=== PATIENT | male | born 1975 | race Caucasian/White ===

== ENCOUNTER 2020-03-31 13:52 | Emergency (ER) | payer MEDICAID ==
[~2020-03-31] VITALS: Ht 165.1 cm; Wt 98.4 kg
[2020-03-31 13:57] VITALS: Ht 165.1 cm; Wt 98.4 kg
[2020-03-31 14:38] LABS: BASOPHIL % 0.8 % (0-2)
[2020-03-31 14:42] LABS: PLATELET COUNT 54 x10^3mcL (130-400); RED CELL DISTRIBUTION WIDTH 15.9 % (11.5-14.5)
[2020-03-31 14:51] LABS: UA SPECIFIC GRAVITY >=1.030 (1.005-1.035); microscopic required? YES; urine erythrocyte 1+ (NEGATIVE)
[2020-03-31 15:45] LABS: CALCIUM 8.8 mg/dL (8.5-10.1); CARBON DIOXIDE 23.9 mmol/L (21-32); CHLORIDE SERUM 101 mmol/L (98-107); GFR1 > 60 mL/min; GLUCOSE SERUM 105 mg/dL (74-106); POTASSIUM SERUM 3.5 mmol/L (3.5-5.1); SODIUM SERUM 142 mmol/L (136-145)
[2020-03-31 15:50] LABS: ALBUMIN 4.1 g/dL (3.4-5.0); ALKALINE PHOSPHATASE 88 U/L (46-116); ALT/SGPT 108 U/L (16-63); AST/SGOT 152 U/L (15-37); BILIRUBIN TOTAL 1.6 mg/dL (0.20-1.00); LIPASE 240 IU/L (73-393); TOTAL PROTEIN, SERUM 8.2 g/dL (6.4-8.2)
[2020-03-31 17:35] VITALS: BP 131/78
== END 2020-03-31 17:35 | disposition home or self-care (01) ==
LOC: ED 13:52
PROVIDERS: Emergency Medicine
DX: N30.90 Cystitis, unspecified without hematuria (principal)
CPT/HCPCS: J7030; Q0092; Q9967

== ENCOUNTER 2020-06-29 17:51 | Inpatient (IN) | payer MEDICAID ==
[~2020-06-29] VITALS: Ht 165.1 cm; Wt 95.3 kg
[2020-06-29 18:48] LABS: PLATELET COUNT 131 x10^3mcL (130-400)
[2020-06-29 18:54] LABS: RED CELL DISTRIBUTION WIDTH 19.7 % (11.5-14.5)
[2020-06-29 19:05] LABS: POTASSIUM SERUM 4.7 mmol/L (3.5-5.1)
[2020-06-29 19:07] LABS: BAND NEUTROPHIL 7 % (0-10); BASOPHIL 0 % (0-2); BILIRUBIN TOTAL 35.6 mg/dL (0.20-1.00); MONOCYTE 2 % (0-7); SEGMENTED NEUTROPHILS 88 % (37-75)
[2020-06-29 19:09] LABS: rbc morphology (normal/abnorm) NORMAL (NORMAL)
[2020-06-29 19:10] LABS: PLATELET MORPHOLOGY PLATELETS NORMAL
[2020-06-29 20:11] LABS: TOTAL PROTEIN, SERUM 5.3 g/dL (6.4-8.2)
[2020-06-29 20:12] LABS: ALBUMIN 1.7 g/dL (3.4-5.0)
[2020-06-29] MEDS ORDERED: OMEPRAZOLE MAGN20 M1 PO (21:19)
[2020-06-29 21:56] LABS: MAGNESIUM 2.7 mg/dL (1.8-2.4)
[2020-06-29 22:06] LABS: FREE T4 0.54 ng/dL (0.76-1.46)
[2020-06-29 22:10] LABS: T4(THYROXINE) 2.6 ug/dL (4.7-13.3)
[2020-06-29 22:14] LABS: T3 TOTAL 0.26 ng/mL
[2020-06-29 23:01] VITALS: BP 109/72
[2020-06-29 23:16] VITALS: Ht 165.1 cm; Wt 95.3 kg
[2020-06-30 00:58] LABS: CHOLESTEROL/HDL RATIO 7.8
[2020-06-30 00:59] LABS: PHOSPHOROUS 16.2 mg/dL (2.5-4.9)
[2020-06-30 04:42] VITALS: BP 111/50
[2020-06-30 07:54] LABS: CARBON DIOXIDE 11.8 mmol/L (21-32); POTASSIUM SERUM 4.8 mmol/L (3.5-5.1)
[2020-06-30 07:59] LABS: CALCIUM 5.6 mg/dL (8.5-10.1); CREATININE SERUM 14.2 mg/dL (0.7-1.3)
[2020-06-30 08:02] VITALS: BP 107/66
[2020-06-30 08:35] LABS: PLATELET COUNT 97 x10^3mcL (130-400); RED CELL DISTRIBUTION WIDTH 19.8 % (11.5-14.5)
[2020-06-30 11:47] VITALS: BP 118/70
[2020-06-30 12:25] LABS: BAND NEUTROPHIL 6 % (0-10); MONOCYTE 3 % (0-7); SEGMENTED NEUTROPHILS 87 % (37-75)
[2020-06-30 12:26] LABS: rbc morphology (normal/abnorm) ABNORMAL (NORMAL)
[2020-06-30 12:27] LABS: PLATELET MORPHOLOGY PLATELETS DECREASED
[2020-06-30 16:41] VITALS: BP 106/55
[2020-06-30 21:01] VITALS: BP 127/90
[2020-07-01 00:45] LABS: AMPHETAMINE QUAL UR NONE DETECTED (See below)
[2020-07-01 05:55] VITALS: BP 124/83
[2020-07-01 08:09] VITALS: BP 134/86
[2020-07-01 08:29] LABS: CARBON DIOXIDE 11.7 mmol/L (21-32); MAGNESIUM 2.9 mg/dL (1.8-2.4); POTASSIUM SERUM 5.1 mmol/L (3.5-5.1)
[2020-07-01 09:02] LABS: CREATININE SERUM 14.5 mg/dL (0.7-1.3)
[2020-07-01 09:39] LABS: PLATELET COUNT 99 x10^3mcL (130-400); RED CELL DISTRIBUTION WIDTH 20.1 % (11.5-14.5)
[2020-07-01 09:46] LABS: CALCIUM 5.2 mg/dL (8.5-10.1); PHOSPHOROUS 17.6 mg/dL (2.5-4.9)
[2020-07-01 11:52] VITALS: BP 123/85
[2020-07-01 13:30] LABS: BAND NEUTROPHIL 5 % (0-10); MONOCYTE 2 % (0-7); SEGMENTED NEUTROPHILS 88 % (37-75); rbc morphology (normal/abnorm) ABNORMAL (NORMAL)
[2020-07-01 13:31] LABS: PLATELET MORPHOLOGY LARGE PLATELET SEEN
[2020-07-01 16:49] VITALS: BP 131/101
[2020-07-01 20:13] VITALS: BP 130/88
[2020-07-02 05:34] VITALS: BP 143/89
[2020-07-02 08:08] VITALS: BP 125/88
[2020-07-02 09:05] LABS: PLATELET COUNT 94 x10^3mcL (130-400); RED CELL DISTRIBUTION WIDTH 19.6 % (11.5-14.5)
[2020-07-02 09:18] LABS: CARBON DIOXIDE 11.1 mmol/L (21-32); MAGNESIUM 2.7 mg/dL (1.8-2.4); POTASSIUM SERUM 4.1 mmol/L (3.5-5.1)
[2020-07-02 09:26] LABS: CALCIUM 5.5 mg/dL (8.5-10.1); CREATININE SERUM 13.8 mg/dL (0.7-1.3)
[2020-07-02 10:18] LABS: PHOSPHOROUS 17.6 mg/dL (2.5-4.9)
[2020-07-02 11:22] LABS: MONOCYTE 1 % (0-7); SEGMENTED NEUTROPHILS 95 % (37-75)
[2020-07-02 11:23] LABS: rbc morphology (normal/abnorm) ABNORMAL (NORMAL)
[2020-07-02 12:06] VITALS: BP 133/69
[2020-07-02 17:02] VITALS: BP 112/78
[2020-07-02 20:41] VITALS: BP 114/76
[2020-07-03 05:34] VITALS: BP 133/81
[2020-07-03 08:56] VITALS: BP 97/64
[2020-07-03 10:17] LABS: ALT/SGPT 98 U/L (16-63); CARBON DIOXIDE 11.7 mmol/L (21-32); CHLORIDE SERUM 87 mmol/L (98-107); POTASSIUM SERUM 3.4 mmol/L (3.5-5.1); SODIUM SERUM 130 mmol/L (136-145)
[2020-07-03 10:30] LABS: GLUCOSE SERUM 107 mg/dL (74-106)
[2020-07-03 10:54] LABS: PLATELET COUNT 92 x10^3mcL (130-400); RED CELL DISTRIBUTION WIDTH 20.2 % (11.5-14.5)
[2020-07-03 10:59] LABS: MONOCYTE 1 % (0-7); SEGMENTED NEUTROPHILS 92 % (37-75); rbc morphology (normal/abnorm) ABNORMAL (NORMAL)
[2020-07-03 11:30] LABS: ALKALINE PHOSPHATASE 141 U/L (46-116); AST/SGOT 176 U/L (15-37)
[2020-07-03 12:03] LABS: ALBUMIN 2.2 g/dL (3.4-5.0); GFR1 4 mL/min; TOTAL PROTEIN, SERUM 5.6 g/dL (6.4-8.2)
[2020-07-03 12:05] LABS: BILIRUBIN TOTAL 39.3 mg/dL (0.20-1.00); CALCIUM 5.7 mg/dL (8.5-10.1); CREATININE SERUM 13.6 mg/dL (0.7-1.3)
[2020-07-03 12:48] VITALS: BP 131/80
[2020-07-03 13:27] LABS: BLOOD UREA NITROGEN > 150.0 mg/dL (7.0-18.0)
[2020-07-03 14:52] VITALS: BP 122/86
[2020-07-03 17:09] VITALS: BP 129/91
[2020-07-03 21:26] VITALS: BP 123/80
[2020-07-04 05:35] VITALS: BP 122/72
[2020-07-04 06:51] LABS: CALCIUM 6.4 mg/dL (8.5-10.1); CARBON DIOXIDE 18.1 mmol/L (21-32)
[2020-07-04 07:08] LABS: POTASSIUM SERUM 2.9 mmol/L (3.5-5.1)
[2020-07-04 07:09] LABS: CREATININE SERUM 9.1 mg/dL (0.7-1.3)
[2020-07-04 07:48] VITALS: BP 105/65
[2020-07-04 08:07] LABS: PLATELET COUNT 51 x10^3mcL (130-400); RED CELL DISTRIBUTION WIDTH 19.6 % (11.5-14.5)
[2020-07-04 10:42] LABS: MONOCYTE 4 % (0-7); SEGMENTED NEUTROPHILS 89 % (37-75); rbc morphology (normal/abnorm) ABNORMAL (NORMAL); tear drop cell (dacryocyte) 1+
[2020-07-04 11:49] VITALS: BP 115/61
[2020-07-04 16:03] VITALS: BP 118/70
[2020-07-04 20:47] VITALS: BP 118/74
[2020-07-05 05:31] VITALS: BP 109/71
[2020-07-05 07:18] VITALS: BP 116/63
[2020-07-05 07:22] LABS: RED CELL DISTRIBUTION WIDTH 19.4 % (11.5-14.5)
[2020-07-05 07:32] LABS: CARBON DIOXIDE 23.6 mmol/L (21-32); POTASSIUM SERUM 3.2 mmol/L (3.5-5.1)
[2020-07-05 07:33] LABS: ALBUMIN 1.9 g/dL (3.4-5.0)
[2020-07-05 07:39] LABS: BILIRUBIN TOTAL 36.1 mg/dL (0.20-1.00)
[2020-07-05 07:40] LABS: CREATININE SERUM 6.9 mg/dL (0.7-1.3)
[2020-07-05 08:41] LABS: PLATELET COUNT 37 x10^3mcL (130-400)
[2020-07-05 12:14] VITALS: BP 113/73
[2020-07-05 15:55] VITALS: BP 117/68
[2020-07-05 17:40] VITALS: BP 102/63
[2020-07-05 19:40] VITALS: BP 117/80
[2020-07-06 05:15] VITALS: BP 118/71
[2020-07-06 05:30] VITALS: BP 122/81
[2020-07-06 08:12] LABS: CALCIUM 7.4 mg/dL (8.5-10.1); CARBON DIOXIDE 28.1 mmol/L (21-32); POTASSIUM SERUM 3.1 mmol/L (3.5-5.1)
[2020-07-06 08:33] LABS: TOTAL PROTEIN, SERUM 5.2 g/dL (6.4-8.2)
[2020-07-06 08:37] LABS: BILIRUBIN TOTAL 33.1 mg/dL (0.20-1.00); CREATININE SERUM 5.3 mg/dL (0.7-1.3)
[2020-07-06 08:45] LABS: PLATELET COUNT 52 x10^3mcL (130-400); RED CELL DISTRIBUTION WIDTH 19.5 % (11.5-14.5)
[2020-07-06 13:17] VITALS: BP 116/79
[2020-07-06 13:36] LABS: MONOCYTE 1 % (0-7); SEGMENTED NEUTROPHILS 91 % (37-75)
[2020-07-06 13:37] LABS: rbc morphology (normal/abnorm) ABNORMAL (NORMAL); target cell (codocyte) 1+
[2020-07-06 13:38] LABS: PLATELET MORPHOLOGY PLATELETS DECREASED
[2020-07-06 18:03] VITALS: BP 113/82
[2020-07-06 20:23] VITALS: BP 108/77
[2020-07-07 06:13] VITALS: BP 105/57
[2020-07-07 06:54] LABS: PLATELET COUNT 50 x10^3mcL (130-400); RED CELL DISTRIBUTION WIDTH 19.5 % (11.5-14.5)
[2020-07-07 07:10] LABS: CALCIUM 8.3 mg/dL (8.5-10.1); CARBON DIOXIDE 24.8 mmol/L (21-32); POTASSIUM SERUM 3.8 mmol/L (3.5-5.1)
[2020-07-07 08:31] LABS: TOTAL PROTEIN, SERUM 5.4 g/dL (6.4-8.2)
[2020-07-07 08:32] LABS: BILIRUBIN TOTAL 32.06 mg/dL (0.20-1.00); CREATININE SERUM 4.4 mg/dL (0.7-1.3)
[2020-07-07 12:09] LABS: BAND NEUTROPHIL 1 % (0-10); MONOCYTE 3 % (0-7); SEGMENTED NEUTROPHILS 95 % (37-75); rbc morphology (normal/abnorm) ABNORMAL (NORMAL)
[2020-07-07 21:07] VITALS: BP 113/62
[2020-07-08 05:05] VITALS: BP 122/79
[2020-07-08 07:33] LABS: CALCIUM 8.2 mg/dL (8.5-10.1); CARBON DIOXIDE 24.2 mmol/L (21-32); POTASSIUM SERUM 3.8 mmol/L (3.5-5.1)
[2020-07-08 07:52] LABS: PLATELET COUNT 66 x10^3mcL (130-400)
[2020-07-08 08:04] LABS: TOTAL PROTEIN, SERUM 5.3 g/dL (6.4-8.2)
[2020-07-08 08:05] LABS: BILIRUBIN TOTAL 29.75 mg/dL (0.20-1.00); CREATININE SERUM 4.9 mg/dL (0.7-1.3)
[2020-07-08 08:24] VITALS: BP 139/83
[2020-07-08 12:04] LABS: MONOCYTE 1 % (0-7); SEGMENTED NEUTROPHILS 96 % (37-75); rbc morphology (normal/abnorm) ABNORMAL (NORMAL)
[2020-07-08 13:16] VITALS: BP 114/71
[2020-07-08 16:30] VITALS: BP 113/70
[2020-07-08 21:32] VITALS: BP 114/79
[2020-07-09] VITALS: BP 116/68
[2020-07-09 04:47] VITALS: BP 132/87
[2020-07-09 07:08] LABS: PLATELET COUNT 67 x10^3mcL (130-400); RED CELL DISTRIBUTION WIDTH 19.9 % (11.5-14.5)
[2020-07-09 07:12] LABS: CALCIUM 8.9 mg/dL (8.5-10.1); CARBON DIOXIDE 25.7 mmol/L (21-32); POTASSIUM SERUM 3.6 mmol/L (3.5-5.1)
[2020-07-09 07:18] LABS: ALBUMIN 2.1 g/dL (3.4-5.0); CREATININE SERUM 5.2 mg/dL (0.7-1.3)
[2020-07-09 08:02] VITALS: BP 126/89
[2020-07-09 12:45] LABS: MONOCYTE 3 % (0-7); SEGMENTED NEUTROPHILS 93 % (37-75); rbc morphology (normal/abnorm) ABNORMAL (NORMAL)
[2020-07-09 12:46] LABS: target cell (codocyte) 1+
[2020-07-09] MEDS ORDERED: LAC30L PO (12:59)
[2020-07-09] MEDS ORDERED: XIFAXAN550 M1 PO (12:59)
[2020-07-09] MEDS ORDERED: THERA TABLET400 MCG PO (13:30)
[2020-07-09] MEDS ORDERED: THI100 PO (13:30)
[2020-07-09] MEDS ORDERED: SYN5 PO (13:30)
[2020-07-09] MEDS ORDERED: PRI20 PO (13:30)
[2020-07-09] MEDS ORDERED: PREDNISOLO15 MG/5 M1 PO (13:30)
[2020-07-09 15:42] LABS: APPEARANCE FLUID CLEAR; COLOR FLUID YELLOW; SOURCE FLUID PARACENTESIS
[2020-07-09 15:43] LABS: RBC FLUID 386 /cumm; WBC FLUID 40 /cumm
[2020-07-09 16:53] LABS: LYMPHOCYTE FLUID 82 %; MONOCYTE FLUID 5 %
== END 2020-07-09 14:45 | disposition home or self-care (01) | DRG 282 ==
LOC: ED 17:51 → DU 21:36
PROVIDERS: Emergency Medicine; Internal Medicine; Internal Medicine Gastroenterology; Internal Medicine Nephrology; Surgery; ADMIT Student in an Organized Health Care Education/Training Program; ATTEND Student in an Organized Health Care Education/Training Program
PROC: B548ZZA Ultrasonography of Superior Vena Cava, Guidance (ICD-10-PCS; 2020-07-02)
PROC: 30233K1 Transfusion of Nonautologous Frozen Plasma into Peripheral Vein, Percutaneous Approach (ICD-10-PCS; 2020-07-02)
PROC: 02HV33Z Insertion of Infusion Device into Superior Vena Cava, Percutaneous Approach (ICD-10-PCS; principal; 2020-07-02 14:45)
PROC: 30233Q1 Transfusion of Nonautologous White Cells into Peripheral Vein, Percutaneous Approach (ICD-10-PCS; 2020-07-05)
PROC: 0W9G3ZZ Drainage of Peritoneal Cavity, Percutaneous Approach (ICD-10-PCS; 2020-07-09)
DX: K85.20 Alcohol induced acute pancreatitis without necrosis or infection (principal); N17.0 Acute kidney failure with tubular necrosis; K76.7 Hepatorenal syndrome; E43 Unspecified severe protein-calorie malnutrition; D69.6 Thrombocytopenia, unspecified; K70.31 Alcoholic cirrhosis of liver with ascites; K70.11 Alcoholic hepatitis with ascites; E83.39 Other disorders of phosphorus metabolism; E83.51 Hypocalcemia; K72.90 Hepatic failure, unspecified without coma; E87.1 Hypo-osmolality and hyponatremia; D64.9 Anemia, unspecified; Z20.828 Contact with and (suspected) exposure to other viral communicable diseases; D72.829 Elevated white blood cell count, unspecified; E03.9 Hypothyroidism, unspecified; Z90.49 Acquired absence of other specified parts of digestive tract; Z68.34 Body mass index [BMI] 34.0-34.9, adult
CPT/HCPCS: 49083; 83880; 84439; 86580; 87116; 87206; 88344; C1729; C1884; C9113; G0378; G0480; J0690; J0696; J1644; J1940; J2001; J2060; J2250; J2270; J2354; J2405; J2543; J3010; J3430; J3490; J7030; J7042; J7050; J7070; J7131; J7510; P9035; P9047; P9059; Q0092; Q9967; U0003-CS

== ENCOUNTER 2020-09-12 11:08 | Emergency (ER) | payer MEDICAID ==
[~2020-09-12] VITALS: Ht 165.1 cm; Wt 90.3 kg
[~2020-09-12 11:08] MED LIST: LAC30L PO; OMEPRAZOLE MAGN20 M1 PO; PREDNISOLO15 MG/5 M1 PO; PRI20 PO; SYN5 PO; THERA TABLET400 MCG PO; THI100 PO; XIFAXAN550 M1 PO
[2020-09-12 11:17] VITALS: Ht 165.1 cm; Wt 90.3 kg
[2020-09-12 13:17] VITALS: BP 111/79
[2020-09-12 13:34] LABS: CALCIUM 8.1 mg/dL (8.5-10.1); CARBON DIOXIDE 31.8 mmol/L (21-32); CREATININE SERUM 1.9 mg/dL (0.7-1.3)
[2020-09-12 13:36] LABS: POTASSIUM SERUM 2.9 mmol/L (3.5-5.1)
== END 2020-09-12 13:56 | disposition home or self-care (01) ==
LOC: ED 11:08
PROVIDERS: Emergency Medicine
DX: N18.6 End stage renal disease (principal); E87.6 Hypokalemia; K74.60 Unspecified cirrhosis of liver; Z02.79 Encounter for issue of other medical certificate

== ENCOUNTER 2020-10-14 10:12 | Emergency (ER) | payer OTHER ==
[~2020-10-14] VITALS: Ht 165.1 cm; Wt 89.4 kg
[~2020-10-14 10:12] MED LIST changes: +ACID REDUCER20 MG PO; +FER300 PO; +LASIX40 MG PO; +TIROSINT50 MC1 PO; +[UNRECOGNIZED DRUG - OTHER] PO
[2020-10-14 10:49] VITALS: Ht 165.1 cm; Wt 89.4 kg
[2020-10-14 12:14] VITALS: BP 118/88
[2020-10-14 12:34] LABS: BILIRUBIN TOTAL 2.5 mg/dL (0.20-1.00); CALCIUM 8.2 mg/dL (8.5-10.1); CARBON DIOXIDE 22.8 mmol/L (21-32); CREATININE SERUM 1.4 mg/dL (0.7-1.3); TOTAL PROTEIN, SERUM 6.2 g/dL (6.4-8.2)
[2020-10-14 12:40] LABS: ALBUMIN 2.1 g/dL (3.4-5.0); POTASSIUM SERUM 2.6 mmol/L (3.5-5.1)
[2020-10-14 12:46] LABS: BASOPHIL % 0 % (0-2); PLATELET COUNT 128 x10^3mcL (130-400); RED CELL DISTRIBUTION WIDTH 18.3 % (11.5-14.5)
== END 2020-10-14 12:17 | disposition home or self-care (01) ==
LOC: ED 10:12
PROVIDERS: Emergency Medicine
DX: K70.31 Alcoholic cirrhosis of liver with ascites (principal); E03.9 Hypothyroidism, unspecified; Z90.89 Acquired absence of other organs; Z99.2 Dependence on renal dialysis; Z20.828 Contact with and (suspected) exposure to other viral communicable diseases

== ENCOUNTER 2020-10-15 08:20 | Emergency (ER) | payer OTHER ==
[~2020-10-15] VITALS: Ht 165.1 cm; Wt 90.3 kg
[2020-10-15 08:38] VITALS: Ht 165.1 cm; Wt 90.3 kg
[2020-10-15 09:27] VITALS: BP 120/82
== END 2020-10-15 10:37 | disposition home or self-care (01) ==
LOC: ED 08:20
DX: R18.8 Other ascites (principal)

== ENCOUNTER 2020-10-29 10:22 | Emergency (ER) | payer OTHER ==
[~2020-10-29] VITALS: Ht 165.1 cm; Wt 91.2 kg
[2020-10-29 10:35] VITALS: BP 131/97; Ht 165.1 cm; Wt 91.2 kg
[2020-10-29 11:36] LABS: BASOPHIL % 0.2 % (0.2-1.5); PLATELET COUNT 142 x10^3mcL (152-348)
[2020-10-29 11:46] LABS: CALCIUM 7.9 mg/dL (8.5-10.1); CARBON DIOXIDE 23.9 mmol/L (21-32); CREATININE SERUM 1.4 mg/dL (0.7-1.3)
[2020-10-29 11:50] LABS: POTASSIUM SERUM 2.5 mmol/L (3.5-5.1)
[2020-10-29 14:49] LABS: RED CELL DISTRIBUTION WIDTH 18.2 % (12.1-16.2)
[2020-10-29 15:02] LABS: rbc morphology (normal/abnorm) NORMAL (NORMAL)
== END 2020-10-29 17:45 | disposition left against medical advice (07) ==
LOC: ED 10:22
DX: Z53.21 Procedure and treatment not carried out due to patient leaving prior to being seen by health care provider (principal)

== ENCOUNTER 2020-11-05 22:03 | Emergency (ER) | payer OTHER ==
[~2020-11-05] VITALS: Ht 165.1 cm; Wt 93.0 kg
[2020-11-05 23:41] LABS: BASOPHIL % 0.1 % (0.2-1.5)
[2020-11-05 23:42] LABS: PLATELET COUNT 152 x10^3mcL (152-348)
[2020-11-05 23:47] LABS: BILIRUBIN TOTAL 3.52 mg/dL (0.20-1.00); CALCIUM 7.9 mg/dL (8.5-10.1); CARBON DIOXIDE 23.1 mmol/L (21-32); CREATININE SERUM 1.9 mg/dL (0.7-1.3); TOTAL PROTEIN, SERUM 6.4 g/dL (6.4-8.2)
[2020-11-05 23:52] LABS: ALBUMIN 1.9 g/dL (3.4-5.0)
[2020-11-05 23:54] LABS: RED CELL DISTRIBUTION WIDTH 17.9 % (12.1-16.2)
[2020-11-05 23:55] LABS: rbc morphology (normal/abnorm) NORMAL (NORMAL)
[2020-11-06 08:31] VITALS: BP 126/80
[2020-11-06 14:23] LABS: SOURCE FLUID ASCITIS
[2020-11-06 14:24] LABS: APPEARANCE FLUID CLOUDY; COLOR FLUID YELLOW; LYMPHOCYTE FLUID 2 %; RBC FLUID 180 /cumm; WBC FLUID 680 /cumm
[2020-11-06 14:25] LABS: MONOCYTE FLUID 5 %
== END 2020-11-06 08:31 | disposition home or self-care (01) ==
LOC: ED 22:03
PROVIDERS: Student in an Organized Health Care Education/Training Program
DX: K70.31 Alcoholic cirrhosis of liver with ascites (principal)
CPT/HCPCS: 49083

== ENCOUNTER 2020-11-13 12:24 | Inpatient (IN) | payer OTHER ==
[~2020-11-13] VITALS: Ht 165.1 cm; Wt 82.1 kg
[2020-11-13 14:36] VITALS: Ht 165.1 cm; Wt 82.1 kg
[2020-11-13 19:45] LABS: BASOPHIL % 0.6 % (0.2-1.5)
[2020-11-13 19:48] LABS: PLATELET COUNT 117 x10^3mcL (152-348); RED CELL DISTRIBUTION WIDTH 17.1 % (12.1-16.2)
[2020-11-13 20:01] LABS: rbc morphology (normal/abnorm) NORMAL (NORMAL)
[2020-11-13 20:07] LABS: CALCIUM 8.1 mg/dL (8.5-10.1); CARBON DIOXIDE 21.7 mmol/L (21-32); CHLORIDE SERUM 101 mmol/L (98-107); CREATININE SERUM 2.7 mg/dL (0.7-1.3); GFR1 27 mL/min; GLUCOSE SERUM 77 mg/dL (74-106); POTASSIUM SERUM 3.1 mmol/L (3.5-5.1); SODIUM SERUM 135 mmol/L (136-145)
[2020-11-13 20:12] LABS: ALBUMIN 1.6 g/dL (3.4-5.0); ALKALINE PHOSPHATASE 94 U/L (46-116); ALT/SGPT 27 U/L (16-63); AST/SGOT 37 U/L (15-37); BILIRUBIN TOTAL 3.2 mg/dL (0.20-1.00); TOTAL PROTEIN, SERUM 6.3 g/dL (6.4-8.2)
[2020-11-13 23:20] LABS: APPEARANCE FLUID CLEAR; COLOR FLUID YELLOW; RBC FLUID 76 /cumm; SOURCE FLUID PARACENTESIS; WBC FLUID 9 /cumm
[2020-11-14 12:24] LABS: BASOPHIL % 0.2 % (0.2-1.5)
[2020-11-14 12:30] LABS: PLATELET COUNT 108 x10^3mcL (152-348); RED CELL DISTRIBUTION WIDTH 16.9 % (12.1-16.2)
[2020-11-14 12:32] LABS: rbc morphology (normal/abnorm) NORMAL (NORMAL)
[2020-11-14 13:14] LABS: BILIRUBIN TOTAL 2.16 mg/dL (0.20-1.00); CALCIUM 8.1 mg/dL (8.5-10.1); CARBON DIOXIDE 21.9 mmol/L (21-32); CREATININE SERUM 2.5 mg/dL (0.7-1.3); POTASSIUM SERUM 3.8 mmol/L (3.5-5.1)
[2020-11-14 13:37] LABS: ALBUMIN 1.4 g/dL (3.4-5.0); TOTAL PROTEIN, SERUM 5.9 g/dL (6.4-8.2)
[2020-11-14 15:53] VITALS: BP 116/90
[2020-11-14 20:45] VITALS: BP 111/88
[2020-11-15 05:34] VITALS: BP 155/80
[2020-11-15 08:53] VITALS: BP 109/73
[2020-11-15 12:19] LABS: PLATELET COUNT 139 x10^3mcL (152-348)
[2020-11-15 12:26] LABS: BILIRUBIN TOTAL 2.07 mg/dL (0.20-1.00); CALCIUM 8.1 mg/dL (8.5-10.1); CARBON DIOXIDE 21.9 mmol/L (21-32); CREATININE SERUM 2.8 mg/dL (0.7-1.3)
[2020-11-15 12:28] LABS: ALBUMIN 1.4 g/dL (3.4-5.0); TOTAL PROTEIN, SERUM 5.8 g/dL (6.4-8.2)
[2020-11-15 12:58] LABS: BASOPHIL % 0 % (0.2-1.5); RED CELL DISTRIBUTION WIDTH 17.3 % (12.1-16.2)
[2020-11-15 13:51] LABS: rbc morphology (normal/abnorm) ABNORMAL (NORMAL)
[2020-11-15 17:55] VITALS: BP 97/72
[2020-11-15 21:52] VITALS: BP 102/74
[2020-11-15 23:55] LABS: APPEARANCE FLUID HAZY; COLOR FLUID YELLOW; LYMPHOCYTE FLUID 0 %; MONOCYTE FLUID 4 %; RBC FLUID 227 /cumm; SOURCE FLUID ASCITES; WBC FLUID 143 /cumm
[2020-11-16 05:33] VITALS: BP 104/69
[2020-11-16 07:05] LABS: BASOPHIL % 0.2 % (0.2-1.5)
[2020-11-16 08:03] LABS: BILIRUBIN TOTAL 1.47 mg/dL (0.20-1.00); CARBON DIOXIDE 21.5 mmol/L (21-32); CREATININE SERUM 2.9 mg/dL (0.7-1.3); POTASSIUM SERUM 3.7 mmol/L (3.5-5.1)
[2020-11-16 08:10] LABS: ALBUMIN 1.8 g/dL (3.4-5.0); TOTAL PROTEIN, SERUM 5.6 g/dL (6.4-8.2)
[2020-11-16 08:28] LABS: PLATELET COUNT 122 x10^3mcL (152-348); RED CELL DISTRIBUTION WIDTH 17.6 % (12.1-16.2)
[2020-11-16 08:33] VITALS: BP 102/68
[2020-11-16 12:05] VITALS: BP 100/68
[2020-11-16 14:12] LABS: acanthocyte (spur cell) 2+; ovalocyte/elliptocyte 1+; rbc morphology (normal/abnorm) ABNORMAL (NORMAL); tear drop cell (dacryocyte) 1+
[2020-11-16 16:26] VITALS: BP 101/68
[2020-11-16 21:32] VITALS: BP 110/75
[2020-11-17 06:08] VITALS: BP 112/79
[2020-11-17 08:31] LABS: PLATELET COUNT 171 x10^3mcL (152-348)
[2020-11-17 08:39] LABS: BILIRUBIN TOTAL 1.6 mg/dL (0.20-1.00); CALCIUM 8.6 mg/dL (8.5-10.1); CARBON DIOXIDE 20.1 mmol/L (21-32); CREATININE SERUM 3.1 mg/dL (0.7-1.3); POTASSIUM SERUM 4.1 mmol/L (3.5-5.1)
[2020-11-17 09:01] VITALS: BP 111/76
[2020-11-17 09:05] LABS: ALBUMIN 2.1 g/dL (3.4-5.0); TOTAL PROTEIN, SERUM 5.9 g/dL (6.4-8.2)
[2020-11-17 11:55] LABS: RED CELL DISTRIBUTION WIDTH 17.8 % (12.1-16.2)
[2020-11-17 13:29] VITALS: BP 135/63
[2020-11-17 18:13] LABS: BAND NEUTROPHIL 14 % (0-10); BASOPHIL 0 % (0-2); SEGMENTED NEUTROPHILS 34 % (37-75)
[2020-11-17 18:14] LABS: rbc morphology (normal/abnorm) ABNORMAL (NORMAL)
[2020-11-17 18:15] LABS: PLATELET MORPHOLOGY PLATELETS NORMAL; schistocyte (helmet cell) 1+
[2020-11-17 21:52] VITALS: BP 95/57
[2020-11-17 23:15] VITALS: BP 103/59
[2020-11-18 06:47] VITALS: BP 113/68
[2020-11-18 07:22] LABS: PLATELET COUNT 205 x10^3mcL (152-348)
[2020-11-18 07:33] LABS: BILIRUBIN TOTAL 1.64 mg/dL (0.20-1.00); CALCIUM 8.7 mg/dL (8.5-10.1); CARBON DIOXIDE 19.5 mmol/L (21-32); CREATININE SERUM 3.8 mg/dL (0.7-1.3); POTASSIUM SERUM 4.3 mmol/L (3.5-5.1)
[2020-11-18 07:35] LABS: ALBUMIN 1.8 g/dL (3.4-5.0); TOTAL PROTEIN, SERUM 5.5 g/dL (6.4-8.2)
[2020-11-18 07:44] VITALS: BP 147/74
[2020-11-18 08:25] LABS: RED CELL DISTRIBUTION WIDTH 17.9 % (12.1-16.2)
[2020-11-18 12:31] VITALS: BP 95/53
[2020-11-18 16:28] VITALS: BP 119/87
[2020-11-18 17:03] LABS: BAND NEUTROPHIL 21 % (0-10); BASOPHIL 0 % (0-2); MONOCYTE 2 % (0-7); SEGMENTED NEUTROPHILS 23 % (37-75)
[2020-11-18 17:05] LABS: rbc morphology (normal/abnorm) ABNORMAL (NORMAL); schistocyte (helmet cell) 1+
[2020-11-18 17:06] LABS: PLATELET MORPHOLOGY PLATELETS NORMAL
[2020-11-18 22:02] LABS: SOURCE FLUID PARACENTESIS
[2020-11-18 22:03] LABS: APPEARANCE FLUID CLEAR; COLOR FLUID PALE YELLOW; RBC FLUID 110 /cumm
[2020-11-18 22:06] LABS: WBC FLUID 8 /cumm
== END 2020-11-18 23:30 | DRG 720 ==
LOC: ED 12:24 → MU 11-14 00:01
PROVIDERS: Hospitalist; Internal Medicine; Specialist; ADMIT Hospitalist; ATTEND Hospitalist
PROC: 0W9G3ZZ Drainage of Peritoneal Cavity, Percutaneous Approach (ICD-10-PCS; principal; 2020-11-14)
PROC: 5A12012 Performance of Cardiac Output, Single, Manual (ICD-10-PCS; 2020-11-18)
PROC: 02PYX3Z Removal of Infusion Device from Great Vessel, External Approach (ICD-10-PCS; 2020-11-18)
DX: A41.9 Sepsis, unspecified organism (principal); J69.0 Pneumonitis due to inhalation of food and vomit; N18.6 End stage renal disease; K70.31 Alcoholic cirrhosis of liver with ascites; K72.90 Hepatic failure, unspecified without coma; Z20.822 Contact with and (suspected) exposure to COVID-19; K92.2 Gastrointestinal hemorrhage, unspecified; R65.20 Severe sepsis without septic shock; D64.9 Anemia, unspecified; E03.9 Hypothyroidism, unspecified; I46.9 Cardiac arrest, cause unspecified; Z99.2 Dependence on renal dialysis; Z79.899 Other long term (current) drug therapy
CPT/HCPCS: 49083; 83880; 85378; C1729; G0378; J0696; J1956; J2001; J2250; J2370; J2405; J2704; J2765; J3010; J3490; J7030; J7050; J7060; P9047; U0003